=== PATIENT | female | born 1940 | race African-American/Black ===

== ENCOUNTER 2023-06-05 18:42 | Emergency (ER) | payer SELFPAY ==
[~2023-06-05] VITALS: Ht 165.1 cm; Wt 75.0 kg
[2023-06-05 18:50] VITALS: O2SAT 98
[2023-06-05] MEDS ORDERED: ASPIRIN 81MG TABLET PO ONE (19:00)
[2023-06-05] MEDS ORDERED: LIDOCAINE HCL 1% 20ML VIAL (Pyxis) INJ INFIL ONE (20:15)
[2023-06-05] MEDS ORDERED: ASPIRIN 81MG TABLET PO NR (21:00)
[2023-06-05] MEDS ORDERED: LIDOCAINE HCL 1% 20ML VIAL (Pyxis) INJ INFIL NR (21:00)
[2023-06-05 21:17] LABS: BASOPHILS % 0.8 % (0.0-2.0); DIFFERENTIAL COMMENT 0; EOSINOPHILS % 2.8 % (0.0-5.0); HEMATOCRIT. 40.4 % (36.0-48.0); LYMPHOCYTES % 17.2 % (20.0-50.0); MEAN CORPUSCULAR HEMOGLOBIN 23.5 pg (28.0-32.0); MEAN CORPUSCULAR HGB CONC 32.3 g/dL (31.0-37.0); MEAN CORPUSCULAR VOLUME 72.8 fL (81.0-99.0); MEAN PLATELET VOLUME 8.4 fl (7.4-10.4); MONOCYTES % 4.7 % (2.0-8.0); NEUTROPHILS % 74.5 % (40.0-76.0); PLATELET 361 x1000/uL (130-400); RED BLOOD CELL COUNT 5.55 mill/uL (4.2-5.4); RED CELL DISTRIBUTION WIDTH 15.8 % (11.6-14.6); WHITE BLOOD COUNT 12.2 x1000/uL (4.5-11.0)
[2023-06-05 21:31] LABS: ALANINE AMINOTRANSFERASE 20 IU/L (10-49); ASPARTATE AMINOTRANSFERASE 34 IU/L (<34); BILIRUBIN TOTAL 0.4 mg/dL (0.1-1.0); CALCIUM 10.7 mg/dL (8.7-10.4); CARBON DIOXIDE 24 mEq/L (21-32); CHLORIDE 100 mEq/L (98-107); CREATININE 1.1 mg/dL (0.6-1.0); GLUCOSE 186 mg/dL (70-105); POTASSIUM 6.1 mEq/L (3.5-5.1); PROTEIN TOTAL 8.5 g/dL (6.0-8.3); SODIUM 131 mEq/L (136-145); TROPONIN I HIGH SENSITIVITY 19 ng/L (3.0-34); UREA NITROGEN BLOOD 18 mg/dL (9-23)
[2023-06-05 22:45] LABS: CALCIUM 10.6 mg/dL (8.7-10.4); CARBON DIOXIDE 24 mEq/L (21-32); CHLORIDE 102 mEq/L (98-107); CREATININE 1.1 mg/dL (0.6-1.0); GLUCOSE 189 mg/dL (70-105); POTASSIUM 4.3 mEq/L (3.5-5.1); SODIUM 134 mEq/L (136-145); TROPONIN I HIGH SENSITIVITY 22 ng/L (3.0-34); UREA NITROGEN BLOOD 19 mg/dL (9-23)
[2023-06-06 00:15] VITALS: BP 160/65; PULSE 80; RESP 18; TEMP 98
== END 2023-06-06 00:20 | disposition home or self-care (01) ==
LOC: ER 18:42
DX: M25.512 Pain in left shoulder (principal); M79.18 Myalgia, other site; I25.2 Old myocardial infarction; Z98.890 Other specified postprocedural states
CPT/HCPCS: 80053; 80048; 83880; 85025; 84484; 36415; 71045; 93005; 99285; Z7610 ×3

== ENCOUNTER 2023-09-10 18:16 | Emergency (ER) | payer MEDICARE, MEDICAID ==
[~2023-09-10] VITALS: Ht 160 cm; Wt 73.0 kg
[2023-09-10 18:18] VITALS: TEMP 97.6; O2SAT 100
[2023-09-10] MEDS: SODIUM CHLORIDE 0.9% 1,000 ML IV ONE (19:22)
[2023-09-10 19:34] LABS: DIFFERENTIAL COMMENT 0; EOSINOPHILS % 5.4 % (0.0-5.0); HEMATOCRIT. 34.1 % (36.0-48.0); HEMOGLOBIN. 11.3 g/dL (12.0-16.0); LYMPHOCYTES % 38.4 % (20.0-50.0); MEAN CORPUSCULAR HEMOGLOBIN 23.7 pg (28.0-32.0); MEAN CORPUSCULAR HGB CONC 33.1 g/dL (31.0-37.0); MEAN CORPUSCULAR VOLUME 71.6 fL (81.0-99.0); MEAN PLATELET VOLUME 7.7 fl (7.4-10.4); MONOCYTES % 8.6 % (2.0-8.0); NEUTROPHILS % 46.6 % (40.0-76.0); PLATELET 281 x1000/uL (130-400); RED BLOOD CELL COUNT 4.76 mill/uL (4.2-5.4); RED CELL DISTRIBUTION WIDTH 15.4 % (11.6-14.6); WHITE BLOOD COUNT 6.1 x1000/uL (4.5-11.0)
[2023-09-10 19:36] LABS: CLARITY URINE CLEAR (CLEAR); COLOR URINE YELLOW (YELLOW); GLUCOSE URINE 3+ (NEGATIVE); KETONES URINE NEGATIVE (NEGATIVE); LEUKOCYTE ESTERASE URINE NEGATIVE (NEGATIVE); NITRITE URINE NEGATIVE (NEGATIVE); OCCULT BLOOD URINE NEGATIVE (NEGATIVE); PH URINE 7.5 (4.5-8.0); PROTEIN URINE NEGATIVE (NEGATIVE); SPECIFIC GRAVITY URINE 1.011 (1.005-1.030); UROBILINOGEN URINE 0.2 E.U./dL (0.2-1.0)
[2023-09-10 19:41] LABS: CHLORIDE 100 mEq/L (98-107); SODIUM 131 mEq/L (136-145)
[2023-09-10 19:42] LABS: CARBON DIOXIDE 23 mEq/L (21-32)
[2023-09-10 19:47] LABS: BACTERIA URINE 1+; GLUCOSE 131 mg/dL (70-105); RBC URINE NONE SEEN /hpf (0-2); SQUAMOUS EPITHELIAL CELL URINE 1+ /lpf (RARE/1+); UREA NITROGEN BLOOD 31 mg/dL (9-23); WBC URINE 0-2 /hpf (0-2)
[2023-09-10 19:48] LABS: TROPONIN I HIGH SENSITIVITY 15 ng/L (3.0-34)
[2023-09-10 20:12] LABS: CREATININE 1.5 mg/dL (0.6-1.0)
[2023-09-10] MEDS: METHOCARBAMOL 500MG TABLET PO ONE (20:55)
[2023-09-10] MEDS: LIDOCAINE 5% PATCH TOP SCH (20:56)
[2023-09-10] MEDS: ACETAMINOPHEN 325MG TABLET PO ONE (20:56)
[2023-09-10] MEDS ORDERED: LIDO700A30 TP (22:10)
[2023-09-10] MEDS ORDERED: METH-653 MT (22:10)
[2023-09-10 22:34] VITALS: BP 110/63; PULSE 63; RESP 14
== END 2023-09-10 22:39 | disposition home or self-care (01) ==
LOC: ER 18:16
DX: M54.9 Dorsalgia, unspecified (principal); R51.9 Headache, unspecified; R10.9 Unspecified abdominal pain; I25.2 Old myocardial infarction; I10 Essential (primary) hypertension; E11.9 Type 2 diabetes mellitus without complications; Z98.890 Other specified postprocedural states
CPT/HCPCS: 99291; 70450; 96360; 80048; 81003; 83880; 83605; 85025; 87040; 87086; 84484; 36415; 71045; 74176; 93005; J7030